=== PATIENT | male | born 1980 | race African-American/Black ===

== ENCOUNTER 2018-05-26 11:20 | Emergency (ER) | payer OTHER ==
[~2018-05-26] VITALS: Ht 188 cm; Wt 86.2 kg
[2018-05-26 11:24] VITALS: Ht 188 cm; Wt 86.2 kg
[2018-05-26 13:10] LABS: BASOPHIL % 0.7 % (0-2); PLATELET COUNT 204 x10^3mcL (130-400); RED CELL DISTRIBUTION WIDTH 13.1 % (11.5-14.5)
[2018-05-26 13:44] LABS: CALCIUM 9.1 mg/dL (8.5-10.1); CARBON DIOXIDE 29.8 mmol/L (21-32); CHLORIDE SERUM 103 mmol/L (98-107); GFR1 > 60 mL/min; GLUCOSE SERUM 110 mg/dL (74-106); POTASSIUM SERUM 4.1 mmol/L (3.5-5.1); SODIUM SERUM 137 mmol/L (136-145)
[2018-05-26 13:48] LABS: ALBUMIN 3.7 g/dL (3.4-5.0); ALKALINE PHOSPHATASE 60 U/L (46-116); ALT/SGPT 65 U/L (16-63); AST/SGOT 50 U/L (15-37); BILIRUBIN TOTAL 0.45 mg/dL (0.20-1.00); TOTAL PROTEIN, SERUM 7.4 g/dL (6.4-8.2)
[2018-05-26 15:02] VITALS: BP 124/73
== END 2018-05-26 11:50 ==
LOC: ED 11:20
PROVIDERS: Emergency Medicine
DX: I86.1 Scrotal varices (principal); R74.8 Abnormal levels of other serum enzymes; Z88.1 Allergy status to other antibiotic agents
CPT/HCPCS: J7030; Q0092